=== PATIENT | male | born 1945 | race Hispanic/Latino ===

== ENCOUNTER 2017-06-03 15:00 | Inpatient (IN) | payer OTHER ==
[~2017-06-03] VITALS: Ht 170.2 cm; Wt 126.9 kg
[2017-06-03 16:20] LABS: APPEARANCE,URINE Clear (CLEAR); BILIRUBIN,URINE Small (NEGATIVE); COLOR,URINE Dark Yellow (YELLOW); GLUCOSE, URINE (UA) Negative (NEGATIVE); KETONES,URINE Negative (NEGATIVE); LEUKOCYTE ESTERASE ,URINE Trace (NEGATIVE); NITRATE,URINE Negative (NEGATIVE); OCCULT BLOOD,URINE Negative (NEGATIVE); PROTEIN,URINE Trace (NEGATIVE)
[2017-06-03 16:27] LABS: BASOPHILS % (AUTO) 0.6 % (0.0-5.0); EOSINOPHILS % (AUTO) 0.9 % (0.0-8.0); HEMATOCRIT 40.1 % (42-54); MEAN CORPUSCULAR HEMOGLOBIN 33.5 pg (27.0-33.0); MEAN CORPUSCULAR HGB CONC 34.5 g/dL (32.0-36.0); MONOCYTES % (AUTO) 11.8 % (3.0-13.0); NEUTROPHILS % (AUTO) 64.7 % (40.0-77.0); PLATELET COUNT (AUTO) 164 K/uL (130-400); RED BLOOD CELL COUNT(AUTO) 4.13 MIL/uL (4.50-6.20); RED CELL DISTRIBUTION WIDTH 16.5 % (11.0-15.5)
[2017-06-03 16:31] LABS: BACTERIA,URINE Rare /HPF (None Seen); RBC,URINE None Seen /HPF (0-1); WBC,URINE 0-1 /HPF (0-1)
[2017-06-03 16:35] LABS: INR 1.15 (0.85-1.15); PARTIAL THROMBOPLASTIN TIME 26.9 SEC (26.3-35.5)
[2017-06-03 16:39] VITALS: BP 177/78
[2017-06-03] MEDS ORDERED: LISI40TA4 PO (16:44)
[2017-06-03] MEDS ORDERED: METO-409 PO (16:44)
[2017-06-03] MEDS ORDERED: METF10004 PO (16:44)
[2017-06-03] MEDS ORDERED: GLIP5TAB11 PO (16:44)
[2017-06-03] MEDS ORDERED: ATOR40TA71 PO (16:44)
[2017-06-03] MEDS ORDERED: LEVO50TA4 PO (16:44)
[2017-06-03] MEDS ORDERED: FLUT1BLS IH (16:44)
[2017-06-03] MEDS ORDERED: ASPI-555 PO (16:44)
[2017-06-03] MEDS ORDERED: DOXA1TAB2 PO (16:44)
[2017-06-04] VITALS (24 sets, daily range): BP systolic 104–178; BP diastolic 62–81
[2017-06-04] MEDS ORDERED: CEFAZOLIN SODIUM 1 GM VIAL ONE ×2 (06:47→07:58)
[2017-06-04] MEDS ORDERED: SODIUM CHLORIDE 0.9% 1000ML 1,000 ML IV ONE (06:47)
[2017-06-04] MEDS ORDERED: TRANEXAMIC ACID 1000MG/10ML IV ONE (07:59)
[2017-06-04] MEDS ORDERED: PROPOFOL 10 MG/ML 20ML VIAL IV ONE (08:36)
[2017-06-04] MEDS ORDERED: DEXAMETHASONE SOD PHOSPHATE 10MG/ML 1ML VIAL ONE (08:36)
[2017-06-04] MEDS ORDERED: GLYCOPYRROLATE 0.2 MG/ML 5 ML VIAL ONE ×2 (08:36→11:20)
[2017-06-04] MEDS ORDERED: LIDOCAINE PF 2% 5ML ABBOJECT ONE (08:36)
[2017-06-04] MEDS ORDERED: MIDAZOLAM HCL 1 MG/ML 2ML VIAL ONE (08:36)
[2017-06-04] MEDS ORDERED: FENTANYL CITRATE PF 50 MCG/1 ML 2ML VIAL ONE (08:36)
[2017-06-04] MEDS ORDERED: BUPIVACAINE/EPI/PF 0.25% 30ML VIAL IJ ONE (08:52)
[2017-06-04] MEDS: ACETAMINOPHEN 325 MG TAB PO SCH ×3 (11:00→22:50)
[2017-06-04] MEDS ORDERED: LIDOCAINE HCL-MPF 1% 2ML VIAL IVP PRN (11:00)
[2017-06-04] MEDS ORDERED: FERROUS FUMARATE 324 MG TABLET PO PRN (11:00)
[2017-06-04] MEDS ORDERED: TEMAZEPAM 15 MG CAPSULE PO PRN (11:00)
[2017-06-04] MEDS ORDERED: OXYCODONE HCL 5 MG TAB PO PRN (11:00)
[2017-06-04] MEDS ORDERED: DIPHENHYDRAMINE HCL 25 MG CAPSULE PO PRN (11:00)
[2017-06-04] MEDS ORDERED: POTASSIUM CHLORIDE 20 MEQ ERTAB PO PRN (11:00)
[2017-06-04] MEDS ORDERED: TRAMADOL HCL 50 MG TABLET PO PRN (11:00)
[2017-06-04] MEDS ORDERED: CALCIUM CARBONATE 500 MG TABLET PO PRN (11:00)
[2017-06-04] MEDS ORDERED: PROMETHAZINE HCL 25 MG/ML 1ML AMPULE IM PRN (11:00)
[2017-06-04] MEDS ORDERED: POTASSIUM CHLORIDE 20MEQ/100ML 100 ML IV PRN (11:00)
[2017-06-04] MEDS ORDERED: DiphenhydrAMINE HCL 50 MG/ML VIAL IVP PRN (11:00)
[2017-06-04] MEDS ORDERED: POTASSIUM CHLORIDE 10% ELIXIR 20 MEQ/15 ML UDCUP PO PRN (11:00)
[2017-06-04] MEDS ORDERED: NEOSTIGMINE 5MG/5ML SYR IV ONE (11:20)
[2017-06-04] MEDS: INSULIN HUMULIN R 100 UNIT/ML 3ML SQ SCH ×3 (11:30→21:00)
[2017-06-04] MEDS ORDERED: MEPERIDINE-PF 25 MG/ML SYG ONE ×2 (11:49→12:06)
[2017-06-04] MEDS: PSYLLIUM SEED 1 EACH PACKET PO SCH (12:00)
[2017-06-04] MEDS: SODIUM CHLORIDE 0.9% 1000ML 1,000 ML IV SCH ×2 (14:52→22:50)
[2017-06-04] MEDS ORDERED: CEFAZOLIN 3GM /D5W 100ML 100 ML IV SCH (16:00)
[2017-06-04] MEDS: CEFAZOLIN SODIUM 1 GM VIAL IVP SCH (16:00)
[2017-06-04] MEDS: KETOROLAC TROMETHAMINE 15MG/ML IV PRN ×2 (16:17→16:32)
[2017-06-04] MEDS: CEFAZOLIN 3GM /D5W 100ML 100 ML IV SCH (16:32)
[2017-06-04] MEDS: ALBUTEROL SULFATE 0.083% 2.5 MG/3 ML INH IH SCH (18:48)
[2017-06-04] MEDS: BUDESONIDE 0.5 MG/2 ML INH IH SCH (18:57)
[2017-06-04] MEDS: ATORVASTATIN CALCIUM 20 MG TABLET PO SCH (20:56)
[2017-06-04] MEDS: DOXAZOSIN MESYLATE 2 MG TABLET PO SCH (20:56)
[2017-06-04] MEDS: CELECOXIB 200 MG CAP PO SCH (20:56)
[2017-06-04] MEDS: METOPROLOL TARTRATE 25 MG TAB PO SCH (20:57)
[2017-06-04] MEDS: ASPIRIN 325 MG TABLET PO SCH (20:57)
[2017-06-04] MEDS: GLIPIZIDE 5 MG TABLET PO SCH (20:57)
[2017-06-04] MEDS: METFORMIN HCL 500 MG TABLET PO SCH (20:57)
[2017-06-04] MEDS: PREGABALIN 75 MG CAPSULE PO SCH (20:58)
[2017-06-05] VITALS (7 sets, daily range): BP systolic 110–176; BP diastolic 45–75
[2017-06-05] MEDS: CEFAZOLIN SODIUM 1 GM VIAL IVP SCH
[2017-06-05] MEDS: ALBUTEROL SULFATE 0.083% 2.5 MG/3 ML INH IH SCH ×5 (00:23→23:08)
[2017-06-05] MEDS: CEFAZOLIN 3GM /D5W 100ML 100 ML IV SCH (01:43)
[2017-06-05] MEDS: ACETAMINOPHEN 325 MG TAB PO SCH ×4 (04:38→23:04)
[2017-06-05 05:36] LABS: HEMATOCRIT 32.6 % (42-54); MEAN CORPUSCULAR HEMOGLOBIN 33.4 pg (27.0-33.0); MEAN CORPUSCULAR HGB CONC 34.4 g/dL (32.0-36.0); MEAN CORPUSCULAR VOLUME 97.1 fL (79-99); PLATELET COUNT (AUTO) 118 K/uL (130-400); RED BLOOD CELL COUNT(AUTO) 3.35 MIL/uL (4.50-6.20); RED CELL DISTRIBUTION WIDTH 15.4 % (11.0-15.5); WHITE BLOOD COUNT (AUTO) 8.4 K/uL (4.8-10.8)
[2017-06-05 05:48] LABS: CREATININE 1.1 mg/dL (0.5-1.5); POTASSIUM 4.1 mmol/L (3.5-5.1)
[2017-06-05] MEDS: INSULIN HUMULIN R 100 UNIT/ML 3ML SQ SCH ×4 (06:45→20:25)
[2017-06-05] MEDS: BUDESONIDE 0.5 MG/2 ML INH IH SCH ×2 (06:52→18:38)
[2017-06-05] MEDS: SODIUM CHLORIDE 0.9% 1000ML 1,000 ML IV SCH (06:59)
[2017-06-05] MEDS: POLYETHYLENE GLYCOL 3350 17 GM POWD.PACK PO SCH (07:57)
[2017-06-05] MEDS: ASPIRIN 325 MG TABLET PO SCH ×2 (07:58→19:56)
[2017-06-05] MEDS: LEVOTHYROXINE 50 MCG TABLET PO SCH (07:58)
[2017-06-05] MEDS: PREGABALIN 75 MG CAPSULE PO SCH ×2 (07:58→19:57)
[2017-06-05] MEDS: CELECOXIB 200 MG CAP PO SCH ×2 (07:58→19:56)
[2017-06-05] MEDS: METOPROLOL TARTRATE 25 MG TAB PO SCH ×2 (07:59→19:58)
[2017-06-05] MEDS: LISINOPRIL 20 MG TABLET PO SCH (07:59)
[2017-06-05] MEDS: GLIPIZIDE 5 MG TABLET PO SCH ×2 (07:59→19:57)
[2017-06-05] MEDS: OXYCODONE HCL 5 MG TAB PO PRN ×2 (08:03→12:59)
[2017-06-05] MEDS: PSYLLIUM SEED 1 EACH PACKET PO SCH (11:40)
[2017-06-05] MEDS: DOXAZOSIN MESYLATE 2 MG TABLET PO SCH (19:57)
[2017-06-05] MEDS: ATORVASTATIN CALCIUM 20 MG TABLET PO SCH (19:57)
[2017-06-05] MEDS: METFORMIN HCL 500 MG TABLET PO SCH (19:57)
[2017-06-06 04:00] VITALS: BP 131/66
[2017-06-06] MEDS: ACETAMINOPHEN 325 MG TAB PO SCH ×3 (04:35→16:42)
[2017-06-06] MEDS: INSULIN HUMULIN R 100 UNIT/ML 3ML SQ SCH ×3 (05:59→16:30)
[2017-06-06 06:26] LABS: HEMATOCRIT 31.6 % (42-54); MEAN CORPUSCULAR HEMOGLOBIN 33.4 pg (27.0-33.0); MEAN CORPUSCULAR HGB CONC 34.6 g/dL (32.0-36.0); MEAN CORPUSCULAR VOLUME 96.6 fL (79-99); PLATELET COUNT (AUTO) 115 K/uL (130-400); RED BLOOD CELL COUNT(AUTO) 3.27 MIL/uL (4.50-6.20)
[2017-06-06] MEDS: BUDESONIDE 0.5 MG/2 ML INH IH SCH ×2 (06:28→18:00)
[2017-06-06] MEDS: ALBUTEROL SULFATE 0.083% 2.5 MG/3 ML INH IH SCH ×3 (06:28→18:00)
[2017-06-06 06:31] LABS: CREATININE 1.2 mg/dL (0.5-1.5); POTASSIUM 4.3 mmol/L (3.5-5.1)
[2017-06-06 07:48] VITALS: BP 112/47
[2017-06-06] MEDS: CELECOXIB 200 MG CAP PO SCH (10:02)
[2017-06-06] MEDS: ASPIRIN 325 MG TABLET PO SCH (10:02)
[2017-06-06] MEDS: METOPROLOL TARTRATE 25 MG TAB PO SCH (10:03)
[2017-06-06] MEDS: LISINOPRIL 20 MG TABLET PO SCH (10:03)
[2017-06-06] MEDS: LEVOTHYROXINE 50 MCG TABLET PO SCH (10:03)
[2017-06-06] MEDS: PREGABALIN 75 MG CAPSULE PO SCH (10:03)
[2017-06-06] MEDS: POLYETHYLENE GLYCOL 3350 17 GM POWD.PACK PO SCH (10:03)
[2017-06-06] MEDS: GLIPIZIDE 5 MG TABLET PO SCH (10:03)
[2017-06-06] MEDS ORDERED: ASPI-1012 PO (10:52)
[2017-06-06] MEDS ORDERED: HYDR-309 PO (10:52)
[2017-06-06 11:32] VITALS: BP 125/57
[2017-06-06] MEDS: PSYLLIUM SEED 1 EACH PACKET PO SCH (12:29)
[2017-06-06 16:00] VITALS: BP 136/55
[2017-06-07] MEDS ORDERED: BISACODYL 10 MG SUPP.RECT RC PRN (11:00)
== END 2017-06-06 19:00 | disposition home health service (06) | DRG 470 ==
LOC: EDSTATUS 15:00 → DAHIP 06-04 06:00 → 4AH 06-04 12:45
PROVIDERS: ADMIT Orthopaedic Surgery; ATTEND Orthopaedic Surgery
PROC: 0SRC0J9 Replacement of Right Knee Joint with Synthetic Substitute, Cemented, Open Approach (ICD-10-PCS; principal; 2017-06-04 08:38)
DX: M17.11 Unilateral primary osteoarthritis, right knee (principal); E11.9 Type 2 diabetes mellitus without complications; I11.9 Hypertensive heart disease without heart failure; Z68.41 Body mass index [BMI] 40.0-44.9, adult; E66.9 Obesity, unspecified; Z85.51 Personal history of malignant neoplasm of bladder; Z83.3 Family history of diabetes mellitus; Z82.49 Family history of ischemic heart disease and other diseases of the circulatory system
CPT/HCPCS: 36415; 80048; 81001; 82948; 85025; 85027; 85610; 85730; 88305; 88311; 94640; 94664; A4218; C1713; J0690; J1100; J1815; J1885; J2001; J2175; J2250; J2704; J2710; J3010; J3490; J7030

== ENCOUNTER 2018-06-17 09:53 | Inpatient (IN) | payer OTHER | END 2018-06-27 21:28 | LOC: 4BH 06-19 19:44 → DAHIP 09:53 → 2BH 21:34 | PROC: 0SPC0JZ Removal of Synthetic Substitute from Right Knee Joint, Open Approach (ICD-10-PCS; principal; 2018-06-17 14:34) | PROC: 0SRC0EZ Replacement of Right Knee Joint with Articulating Spacer, Open Approach (ICD-10-PCS; 2018-06-17 14:34) | PROC: 0SBC0ZZ Excision of Right Knee Joint, Open Approach (ICD-10-PCS; 2018-06-17 14:34) | PROC: 5A1935Z Respiratory Ventilation, Less than 24 Consecutive Hours (ICD-10-PCS; 2018-06-17 14:34) | PROC: 0BH17EZ Insertion of Endotracheal Airway into Trachea, Via Natural or Artificial Opening (ICD-10-PCS; 2018-06-17 14:34) | DX: T84.53XA Infection and inflammatory reaction due to internal right knee prosthesis, initial encounter (principal); J95.821 Acute postprocedural respiratory failure; N17.9 Acute kidney failure, unspecified; N39.0 Urinary tract infection, site not specified; Y83.1 Surgical operation with implant of artificial internal device as the cause of abnormal reaction of the patient, or of later complication, without mention of misadventure at the time of the procedure; F17.200 Nicotine dependence, unspecified, uncomplicated; I12.9 Hypertensive chronic kidney disease with stage 1 through stage 4 chronic kidney disease, or unspecified chronic kidney disease; G47.33 Obstructive sleep apnea (adult) (pediatric); N18.3 Chronic kidney disease, stage 3 (moderate); E87.5 Hyperkalemia; E66.01 Morbid (severe) obesity due to excess calories; Z68.37 Body mass index [BMI] 37.0-37.9, adult ==

== ENCOUNTER 2018-07-28 10:01 | Inpatient (IN) | payer OTHER ==
[~2018-07-28] VITALS: Ht 170.2 cm; Wt 117.0 kg
[~2018-07-28 10:01] MED LIST: APIX2.5T PO; ASPI-555 PO; ATOR40TA71 PO; DOXA1TAB2 PO; FERR324T PO; GLIP5TAB11 PO; HYDR-4457 PO; HYDR12.54 PO; LEVO50TA4 PO; LISI40TA4 PO; METF-446 PO; METO-409 PO
[2018-07-28] MEDS ORDERED: ACETAMINOPHEN 325 MG TAB PO PRN (12:00)
[2018-07-28] MEDS ORDERED: PROMETHAZINE HCL 25 MG/ML 1ML AMPULE IM PRN (12:00)
[2018-07-28] MEDS ORDERED: HYDROCODONE/ACETAMINOPHEN 5/325 MG TAB PO PRN ×2 (12:00)
[2018-07-28] MEDS ORDERED: CEFAZOLIN 3GM /D5W 100ML 100 ML IV SCH (12:00)
[2018-07-28] MEDS ORDERED: TRAMADOL HCL 50 MG TABLET PO PRN (12:00)
[2018-07-28 12:02] LABS: BASOPHILS % (AUTO) 0.6 % (0.0-5.0); EOSINOPHILS % (AUTO) 3.8 % (0.0-8.0); HEMATOCRIT 31.8 % (42-54); LYMPHOCYTES % (AUTO) 20.5 % (21.0-51.0); MEAN CORPUSCULAR HEMOGLOBIN 32.4 pg (27.0-33.0); MEAN CORPUSCULAR HGB CONC 33.3 g/dL (32.0-36.0); MEAN CORPUSCULAR VOLUME 97.2 fL (79-99); MONOCYTES % (AUTO) 12.4 % (3.0-13.0); NEUTROPHILS % (AUTO) 62.7 % (40.0-77.0); PLATELET COUNT (AUTO) 119 K/uL (130-400); RED BLOOD CELL COUNT(AUTO) 3.28 MIL/uL (4.50-6.20); RED CELL DISTRIBUTION WIDTH 14.6 % (11.0-15.5); WHITE BLOOD COUNT (AUTO) 5.9 K/uL (4.8-10.8)
[2018-07-28 12:05] LABS: APPEARANCE,URINE Clear (CLEAR); BILIRUBIN,URINE Negative (NEGATIVE); COLOR,URINE Yellow (YELLOW); GLUCOSE, URINE (UA) Negative (NEGATIVE); KETONES,URINE Negative (NEGATIVE); LEUKOCYTE ESTERASE ,URINE Trace (NEGATIVE); NITRATE,URINE Negative (NEGATIVE); OCCULT BLOOD,URINE Negative (NEGATIVE); PH,URINE 6.5 (5.0-8.0); PROTEIN,URINE Negative (NEGATIVE); UROBILINOGEN,URINE 0.2 mg/dL (0.2-1.0)
[2018-07-28 12:21] LABS: ALBUMIN 2.8 g/dL (3.5-5.0); BILIRUBIN,TOTAL 1.4 mg/dL (0.2-1.0); INR 1.21 (0.85-1.15); PARTIAL THROMBOPLASTIN TIME 30.3 SEC (26.3-35.5); PROTHROMBIN TIME 12.7 SEC (9.6-11.6); TOTAL PROTEIN, SERUM 6.6 g/dL (6.0-8.3)
[2018-07-28 12:29] LABS: BACTERIA,URINE Rare /HPF (None Seen); RBC,URINE None Seen /HPF (0-1); SQUAMOUS EPITHELIAL CELL,UR 0-2 /HPF (0-2)
[2018-07-28 13:09] LABS: ERYTHROCYTE SEDIMENTATION RATE 29 MM/HR (0-20)
[2018-07-28 14:04] LABS: PLATELET MORPHOLOGY COMMENT DECREASED
[2018-07-28] MEDS ORDERED: SODIUM CHLORIDE 0.9% 1000ML 1,000 ML IV ONE (14:37)
[2018-07-28 16:00] VITALS: BP 176/76
--- NOTE | 2018-07-28 17:30 | NUR ---
Assumed care of pt from Michael Paul RN. Pt noted to have PICC to ILDEFONSO with dressing dated 07/09/18. Notified Ortho Coordinator Ally Zavala RN and Director Ally Guillen RN. Sterile dressing change performed per facility protocol. Photos taken and placed in chart. Single port PICC; changed luer lock as well. Port flushes well and has good blood return. Pt voiced no discomfort.
[2018-07-28] MEDS ORDERED: VANCOMYCIN PROTOCOL PER PHARMACY IV SCH (18:00)
[2018-07-28] MEDS ORDERED: VANCOMYCIN 2 GM in SODIUM CHLORIDE 0.9% 500ML 500 ML IV ONE (18:30)
[2018-07-28 20:00] VITALS: BP 162/73
[2018-07-28] MEDS: SODIUM CHLORIDE 0.9% 1000ML 1,000 ML IV SCH (20:33)
[2018-07-28] MEDS ORDERED: ATORVASTATIN CALCIUM 40 MG TABLET ONE (23:16)
[2018-07-28 23:55] VITALS: BP 167/66
[2018-07-28] MEDS ORDERED: METOPROLOL TARTRATE 25 MG TAB ONE (23:55)
[2018-07-29] VITALS (23 sets, daily range): BP systolic 106–153; BP diastolic 44–67
[2018-07-29] MEDS: METOPROLOL TARTRATE 25 MG TAB PO SCH ×3 (00:01→20:56)
[2018-07-29] MEDS: LEVOTHYROXINE 50 MCG TABLET PO SCH (06:30)
[2018-07-29] MEDS: VANCOMYCIN 1GM+NS 250ML 250 ML IV SCH ×2 (07:20→18:31)
[2018-07-29] MEDS ORDERED: GLUCAGON 1MG KIT 1 MG ML IM PRN (07:30)
[2018-07-29] MEDS ORDERED: DEXTROSE 50%-WATER 50 ML DISP.SYRIN IV PRN (07:30)
[2018-07-29] MEDS: GLIPIZIDE 5 MG TABLET PO SCH ×2 (08:00→17:00)
[2018-07-29 08:19] LABS: BASOPHILS % (AUTO) 0.9 % (0.0-5.0); EOSINOPHILS % (AUTO) 5.9 % (0.0-8.0); LYMPHOCYTES % (AUTO) 21.9 % (21.0-51.0); MEAN CORPUSCULAR HEMOGLOBIN 33.5 pg (27.0-33.0); MEAN CORPUSCULAR HGB CONC 34.3 g/dL (32.0-36.0); MEAN CORPUSCULAR VOLUME 97.8 fL (79-99); MONOCYTES % (AUTO) 11.1 % (3.0-13.0); NEUTROPHILS % (AUTO) 60.2 % (40.0-77.0); NUCLEATED RED BLOOD CELLS 0.2 % (0.0-0.19); PLATELET COUNT (AUTO) 113 K/uL (130-400); RED BLOOD CELL COUNT(AUTO) 3.07 MIL/uL (4.50-6.20); RED CELL DISTRIBUTION WIDTH 14.3 % (11.0-15.5); WHITE BLOOD COUNT (AUTO) 4.7 K/uL (4.8-10.8)
[2018-07-29 08:52] LABS: POTASSIUM 4.1 mmol/L (3.5-5.1)
[2018-07-29] MEDS: LISINOPRIL 20 MG TABLET PO SCH (09:00)
[2018-07-29] MEDS: DOXAZOSIN MESYLATE 2 MG TABLET PO SCH (09:00)
[2018-07-29] MEDS ORDERED: FERROUS GLUCONATE 325 MG TABLET PO SCH (09:00)
[2018-07-29] MEDS: HYDROCHLOROTHIAZIDE 25 MG TABLET PO SCH (09:00)
[2018-07-29] MEDS: SODIUM CHLORIDE 0.9% 1000ML 1,000 ML IV SCH ×2 (10:29→18:00)
[2018-07-29] MEDS ORDERED: KETOROLAC TROMETHAMINE 15MG/ML ONE (11:00)
[2018-07-29] MEDS ORDERED: CELECOXIB 200 MG CAP ONE (11:00)
[2018-07-29] MEDS ORDERED: ACETAMINOPHEN EXTRA STRENGTH 500 MG TABLET ONE (11:00)
[2018-07-29] MEDS ORDERED: OXYCODONE HCL 10 MG TAB.SR.12H PO ONE (11:01)
[2018-07-29] MEDS: CEFAZOLIN SODIUM 1 GM VIAL ONE ×2 (11:29→12:19)
[2018-07-29] MEDS ORDERED: VANCOMYCIN HCL 1 GM VIAL ONE ×3 (11:52→14:53)
[2018-07-29] MEDS ORDERED: CEFAZOLIN SODIUM 1 GM VIAL ONE ×5 (11:52→16:11)
[2018-07-29] MEDS ORDERED: TRANEXAMIC ACID 1000MG/10ML IV ONE ×2 (11:52→17:02)
[2018-07-29] MEDS ORDERED: MIDAZOLAM HCL 1 MG/ML 2ML VIAL ONE (12:05)
[2018-07-29] MEDS ORDERED: LIDOCAINE PF 2% 5ML ABBOJECT ONE (12:06)
[2018-07-29] MEDS ORDERED: PROPOFOL 10 MG/ML 20ML VIAL IV ONE (12:06)
[2018-07-29] MEDS ORDERED: ROCURONIUM 10MG/1ML SYR 10 MG/ML ML ONE ×2 (12:07→13:57)
[2018-07-29] MEDS ORDERED: EPHEDRINE SULFATE 50 MG/ML AMPULE ONE (12:36)
[2018-07-29] MEDS ORDERED: GLYCOPYRROLATE 1 MG/5 ML SYRINGE ONE ×2 (12:58→15:58)
[2018-07-29] MEDS ORDERED: CEFAZOLIN SODIUM 1 GM VIAL IRRIG ONE (13:00)
[2018-07-29 13:50] LABS: APPEARANCE BODY FLUID TURBID (CLEAR); COLOR,BODY FLUID RED (LT YELLOW); SPECIMENTYPE,BODY FLUID SYNOVIAL
[2018-07-29 13:51] LABS: BODY FLUID RBC 690000 /cu. mm.; BODY FLUID WBC 563 /cu. mm.; TOTAL VOLUME,BODY FLUID 10 mL
[2018-07-29 14:36] LABS: BF EOSINOPHIL 14 %; BF LYMPHOCYTE 14 %; BF MESOTHELIAL 5 %; BF MONOCYTE 4 %
[2018-07-29] MEDS ORDERED: NEOSTIGMINE 5MG/5ML SYR IV ONE (15:58)
[2018-07-29] MEDS ORDERED: DiphenhydrAMINE HCL 50 MG/ML VIAL IVP PRN (16:15)
[2018-07-29] MEDS ORDERED: OXYCODONE HCL 5 MG TAB PO PRN ×2 (16:15)
[2018-07-29] MEDS ORDERED: POTASSIUM CHLORIDE 10% ELIXIR 20 MEQ/15 ML UDCUP PO PRN (16:15)
[2018-07-29] MEDS ORDERED: TEMAZEPAM 15 MG CAPSULE PO PRN (16:15)
[2018-07-29] MEDS ORDERED: CALCIUM CARBONATE 500 MG TABLET PO PRN (16:15)
[2018-07-29] MEDS ORDERED: FERROUS FUMARATE 324 MG TABLET PO PRN (16:15)
[2018-07-29] MEDS ORDERED: LIDOCAINE HCL-MPF 1% 2ML VIAL IVP PRN (16:15)
[2018-07-29] MEDS ORDERED: POTASSIUM CHLORIDE 20MEQ/100ML 100 ML IV PRN (16:15)
[2018-07-29] MEDS ORDERED: ONDANSETRON HCL 4 MG/2 ML VIAL IVP PRN (16:15)
[2018-07-29] MEDS ORDERED: POTASSIUM CHLORIDE 20 MEQ ERTAB PO PRN (16:15)
[2018-07-29] MEDS ORDERED: ONDANSETRON HCL 4 MG/2 ML VIAL ONE (16:23)
[2018-07-29] MEDS ORDERED: FENTANYL CITRATE PF 50 MCG/1 ML 2ML VIAL ONE (16:25)
[2018-07-29] MEDS: INSULIN HUMULIN R 100 UNIT/ML 3ML SQ SCH ×2 (16:30→20:56)
[2018-07-29] MEDS ORDERED: MEPERIDINE-PF 25 MG/ML SYG ONE (17:02)
[2018-07-29] MEDS: ACETAMINOPHEN EXTRA STRENGTH 500 MG TABLET PO SCH (18:00)
[2018-07-29] MEDS: CELECOXIB 200 MG CAP PO SCH (20:56)
[2018-07-29] MEDS: FAMOTIDINE 20MG TAB 20 MG TAB PO SCH (20:56)
[2018-07-29] MEDS: ATORVASTATIN CALCIUM 40 MG TABLET PO SCH (20:56)
[2018-07-29] MEDS: PREGABALIN 25 MG CAP PO SCH (20:56)
[2018-07-29] MEDS: METFORMIN HCL 500 MG TABLET PO SCH (20:56)
[2018-07-29] MEDS: APIXABAN 2.5 MG TABLET PO SCH (20:56)
[2018-07-29] MEDS: CEFAZOLIN SODIUM 1 GM VIAL IVP SCH (20:57)
[2018-07-29] MEDS ORDERED: NON-FORMULARY MEDICATION 1 EACH (Metoprolol Succinate 50 MG) PO SCH (21:00)
[2018-07-30] MEDS: ACETAMINOPHEN EXTRA STRENGTH 500 MG TABLET PO SCH ×3 (00:20→16:40)
[2018-07-30] MEDS: SODIUM CHLORIDE 0.9% 1000ML 1,000 ML IV SCH ×4 (01:27→13:57)
[2018-07-30 04:00] VITALS: BP 119/59
[2018-07-30] MEDS: CEFAZOLIN SODIUM 1 GM VIAL IVP SCH (04:48)
[2018-07-30 05:41] LABS: HEMATOCRIT 29.6 % (42-54); MEAN CORPUSCULAR HEMOGLOBIN 32.2 pg (27.0-33.0); MEAN CORPUSCULAR HGB CONC 32.4 g/dL (32.0-36.0); MEAN CORPUSCULAR VOLUME 99.5 fL (79-99); NUCLEATED RED BLOOD CELLS 0.1 % (0.0-0.19); PLATELET COUNT (AUTO) 160 K/uL (130-400); RED BLOOD CELL COUNT(AUTO) 2.97 MIL/uL (4.50-6.20); RED CELL DISTRIBUTION WIDTH 15.1 % (11.0-15.5); WHITE BLOOD COUNT (AUTO) 12.3 K/uL (4.8-10.8)
[2018-07-30 06:04] LABS: CREATININE 1.6 mg/dL (0.5-1.5); POTASSIUM 4.8 mmol/L (3.5-5.1)
--- NOTE | 2018-07-30 06:18 | NUR ---
INSERTED 16F MARTIN CATHETER D/T URINARY RETENTION. PT UNABLE TO VOID MORE THAN 20CC. DRAINED 600ML DARK ANA PAULA CLEAR URINE FROM THE BLADDER.
[2018-07-30] MEDS: INSULIN HUMULIN R 100 UNIT/ML 3ML SQ SCH ×4 (06:34→20:01)
[2018-07-30] MEDS: LEVOTHYROXINE 50 MCG TABLET PO SCH (06:45)
[2018-07-30] MEDS: VANCOMYCIN 1GM+NS 250ML 250 ML IV SCH ×2 (07:29→20:01)
[2018-07-30 08:26] VITALS: BP 121/56
[2018-07-30] MEDS: HYDROCHLOROTHIAZIDE 25 MG TABLET PO SCH (09:00)
[2018-07-30] MEDS: METOPROLOL TARTRATE 25 MG TAB PO SCH ×2 (09:00→20:00)
[2018-07-30] MEDS: DOXAZOSIN MESYLATE 2 MG TABLET PO SCH (09:00)
[2018-07-30] MEDS: PREGABALIN 25 MG CAP PO SCH ×2 (09:51→20:00)
[2018-07-30] MEDS: CELECOXIB 200 MG CAP PO SCH ×2 (09:51→20:00)
[2018-07-30] MEDS: FAMOTIDINE 20MG TAB 20 MG TAB PO SCH ×2 (09:51→20:00)
[2018-07-30] MEDS: TRAMADOL HCL 50 MG TABLET PO PRN ×2 (09:51→13:04)
[2018-07-30] MEDS: APIXABAN 2.5 MG TABLET PO SCH ×2 (09:52→20:00)
[2018-07-30] MEDS: LISINOPRIL 20 MG TABLET PO SCH (09:52)
[2018-07-30] MEDS: TAMSULOSIN HCL 0.4 MG CAP.ER.24H PO SCH (09:53)
[2018-07-30] MEDS: GLIPIZIDE 5 MG TABLET PO SCH ×2 (09:53→16:39)
[2018-07-30] MEDS: POLYETHYLENE GLYCOL 3350 17 GM POWD.PACK PO SCH (09:54)
[2018-07-30 11:36] VITALS: BP 124/54
--- NOTE | 2018-07-30 12:35 | NUR ---
DC PLAN VISITED WITH PATIENT. PATIENT LIVES WITH SPOUSE. INDEPENDENT ABLE TO PERFORM ADL'S. PATIENT HAS NO SERVICES. DME AVAILABLE FROM [facility]. Pamela SIDDIQUI, 3 IN 1. ANNABELLE SIGNED FOR [facility]. INFO SENT PENDING PT. Addendum: 07/30/18 at 1237 by IVANA CARRERO RN CM Amended: Links added.
[2018-07-30 16:26] VITALS: BP 117/47
[2018-07-30 19:35] VITALS: BP 125/49
[2018-07-30] MEDS: METFORMIN HCL 500 MG TABLET PO SCH (20:00)
[2018-07-30] MEDS: ATORVASTATIN CALCIUM 40 MG TABLET PO SCH (20:00)
[2018-07-30 23:40] VITALS: BP 106/46
[2018-07-31] MEDS: ACETAMINOPHEN EXTRA STRENGTH 500 MG TABLET PO SCH ×4 (01:25→23:56)
[2018-07-31 03:22] VITALS: BP 112/53
[2018-07-31 04:09] LABS: HEMATOCRIT 23.8 % (42-54); MEAN CORPUSCULAR HEMOGLOBIN 33.8 pg (27.0-33.0); MEAN CORPUSCULAR HGB CONC 34.3 g/dL (32.0-36.0); MEAN CORPUSCULAR VOLUME 98.7 fL (79-99); NUCLEATED RED BLOOD CELLS 0.1 % (0.0-0.19); PLATELET COUNT (AUTO) 100 K/uL (130-400); RED BLOOD CELL COUNT(AUTO) 2.41 MIL/uL (4.50-6.20); RED CELL DISTRIBUTION WIDTH 14.7 % (11.0-15.5); WHITE BLOOD COUNT (AUTO) 6.7 K/uL (4.8-10.8)
[2018-07-31 04:19] LABS: POTASSIUM 4.5 mmol/L (3.5-5.1)
[2018-07-31] MEDS: VANCOMYCIN 1GM+NS 250ML 250 ML IV SCH ×2 (06:58→17:40)
[2018-07-31] MEDS: LEVOTHYROXINE 50 MCG TABLET PO SCH (06:58)
[2018-07-31] MEDS: INSULIN HUMULIN R 100 UNIT/ML 3ML SQ SCH ×4 (06:59→20:21)
[2018-07-31] MEDS: GLIPIZIDE 5 MG TABLET PO SCH ×2 (08:00→16:44)
[2018-07-31 08:01] VITALS: BP 134/50
--- NOTE | 2018-07-31 09:00 | NUR ---
PICC line to right upper arm removed per Dr. Hanna's order. No resistance felt. 15 cm in length. Tip intact, appears cut, not jagged or torn. Pt stated was purposely short. Pressure held with sterile gloved and sterile 4x4 until hemostasis achieved, then dressed with sterile 4x4 and opsite. Pt tolerated well. Inserted new 22g PIV to LFA placed on first attempt, good blood return, flushes well. Aseptic technique utilized. Pt tolerated well.
[2018-07-31] MEDS: APIXABAN 2.5 MG TABLET PO SCH ×2 (09:22→20:21)
[2018-07-31] MEDS: DOXAZOSIN MESYLATE 2 MG TABLET PO SCH (09:22)
[2018-07-31] MEDS: METOPROLOL TARTRATE 25 MG TAB PO SCH ×2 (09:23→20:21)
[2018-07-31] MEDS: TAMSULOSIN HCL 0.4 MG CAP.ER.24H PO SCH (09:23)
[2018-07-31] MEDS: FAMOTIDINE 20MG TAB 20 MG TAB PO SCH ×2 (09:23→20:21)
[2018-07-31] MEDS: POLYETHYLENE GLYCOL 3350 17 GM POWD.PACK PO SCH (09:23)
[2018-07-31] MEDS: PREGABALIN 25 MG CAP PO SCH ×2 (09:23→20:21)
[2018-07-31 11:49] VITALS: BP 105/40
[2018-07-31] MEDS: SODIUM CHLORIDE 0.9% 1000ML 1,000 ML IV SCH (11:59)
--- NOTE | 2018-07-31 15:00 | NUR ---
cm note received call from Melody at [facility] and states pt is approved for [facility]. provided number to [email or web address] primary nurse for report. pts states he does have all equipment needed. 3 in 1 and SC, and walker, and w/c in place. states no other dc needs. pt updated on Home health. verbalizes understanding.
--- NOTE | 2018-07-31 15:15 | NUR ---
Notified Dr. Tam's office of consult.
[2018-07-31 16:06] VITALS: BP 115/50
--- NOTE | 2018-07-31 18:00 | NUR ---
Dressing change to right knee incision done per md orders. Skin edges well approximated with surgical glue. Painted with betadine and dressed with sterile 4x4's. Pt had Hemovac in place to upper thigh; is currently secured with silk tape. Secured knee dressing with sweta wrap and replaced immobilizer. Total drained from Hemovac was 155 cc sanguinous fluid. Pt stated no discomfort during procedure.
--- NOTE | 2018-07-31 18:30 | NUR ---
Dr. Tam here for initial consult with pt. Rec'd orders to leave Mccray in place upon discharge and follow up with him in 1 week.
[2018-07-31 19:10] VITALS: BP 99/51
[2018-07-31] MEDS: METFORMIN HCL 500 MG TABLET PO SCH (20:21)
[2018-07-31] MEDS: ATORVASTATIN CALCIUM 40 MG TABLET PO SCH (20:21)
[2018-08-01] VITALS: BP 118/45
[2018-08-01 03:46] VITALS: BP 122/58
[2018-08-01 04:31] LABS: HEMATOCRIT 22.9 % (42-54); MEAN CORPUSCULAR HEMOGLOBIN 32.9 pg (27.0-33.0); MEAN CORPUSCULAR HGB CONC 33.6 g/dL (32.0-36.0); MEAN CORPUSCULAR VOLUME 98.1 fL (79-99); PLATELET COUNT (AUTO) 109 K/uL (130-400); RED BLOOD CELL COUNT(AUTO) 2.33 MIL/uL (4.50-6.20); RED CELL DISTRIBUTION WIDTH 14.8 % (11.0-15.5); WHITE BLOOD COUNT (AUTO) 4.9 K/uL (4.8-10.8)
[2018-08-01 04:36] LABS: % IRON SATURATION 15.8 % (30-44)
[2018-08-01 04:52] LABS: CREATININE 1.8 mg/dL (0.5-1.5); POTASSIUM 4.2 mmol/L (3.5-5.1)
[2018-08-01 05:10] LABS: BAND NEUTROPHILS % (MANUAL) 3 % (0-2); EOSINOPHILS % (MANUAL) 8 % (1-6); LYMPHOCYTES % (MANUAL) 14 % (22-44); MONOCYTES % (MANUAL) 9 % (2-9); REACTIVE LYMPHOCYTES 2 % (0-0); SEGMENTED NEUTROPHILS % 64 % (40-70)
[2018-08-01 05:12] LABS: MAN.DIFF COMMENT-IMPRESSION MANUAL DIFFERENTIAL
[2018-08-01] MEDS: VANCOMYCIN 1GM+NS 250ML 250 ML IV SCH (05:44)
[2018-08-01] MEDS: INSULIN HUMULIN R 100 UNIT/ML 3ML SQ SCH ×2 (05:44→11:17)
[2018-08-01] MEDS: LEVOTHYROXINE 50 MCG TABLET PO SCH (06:24)
[2018-08-01 07:30] VITALS: BP 120/59
[2018-08-01] MEDS: POLYETHYLENE GLYCOL 3350 17 GM POWD.PACK PO SCH (08:21)
[2018-08-01] MEDS: METOPROLOL TARTRATE 25 MG TAB PO SCH (08:21)
[2018-08-01] MEDS: APIXABAN 2.5 MG TABLET PO SCH (08:21)
[2018-08-01] MEDS: PREGABALIN 25 MG CAP PO SCH (08:22)
[2018-08-01] MEDS: DOXAZOSIN MESYLATE 2 MG TABLET PO SCH (08:22)
[2018-08-01] MEDS: FAMOTIDINE 20MG TAB 20 MG TAB PO SCH (08:23)
[2018-08-01] MEDS: GLIPIZIDE 5 MG TABLET PO SCH (08:23)
[2018-08-01] MEDS: ACETAMINOPHEN EXTRA STRENGTH 500 MG TABLET PO SCH (08:25)
[2018-08-01] MEDS: TAMSULOSIN HCL 0.4 MG CAP.ER.24H PO SCH (08:25)
[2018-08-01] MEDS ORDERED: HYDR-4457 PO (10:31)
[2018-08-01] MEDS ORDERED: FERR324T PO (10:33)
[2018-08-01 11:18] VITALS: BP 104/46
[2018-08-01] MEDS ORDERED: APIX2.5T PO ×2 (11:18→11:28)
[2018-08-01] MEDS ORDERED: SODIUM CHLORIDE 0.9% 250 ML IV ONE (11:46)
[2018-08-01] MEDS ORDERED: COMPOUND IV MISC 1 EACH IVSOLN MISC PRN (12:30)
[2018-08-01] MEDS ORDERED: BISACODYL 10 MG SUPP.RECT RC PRN (16:15)
--- NOTE | 2018-08-01 17:00 | NUR ---
INSTRUCTIONS DISCHARGE INSTRUCTIONS GIVEN TO PATIENT AND FAMILY USING TEACH BACK. IV REMOVED WITH TIP INTACT. DIRECT PRESSURE APPLIED UNTIL BLEEDING CONTROLLED THEN SITE COVERED WITH GAUZE AND SECURED WITH A BAND-AID. F/U APPOINTMENTS WILL BE MADE BY PATIENT ON FRIDAY DURING REGULAR BUSINESS HOURS. NO QUESTIONS OR CONCERNS VOICED.
[2018-08-02] MEDS ORDERED: IRON SUCROSE COMPLEX 100 MG in SODIUM CHLORIDE 0.9% 50 ML IV SCH (09:00)
== END 2018-08-01 17:00 | disposition home health service (06) | DRG 467 ==
LOC: EDH 10:01 → EDHIP 10:02 → 4AH 14:46
PROVIDERS: ADMIT Orthopaedic Surgery; ATTEND Orthopaedic Surgery
PROC: 30233N1 Transfusion of Nonautologous Red Blood Cells into Peripheral Vein, Percutaneous Approach (ICD-10-PCS; principal; 2018-07-29 12:04)
PROC: 0SPC0JZ Removal of Synthetic Substitute from Right Knee Joint, Open Approach (ICD-10-PCS; 2018-07-29 12:04)
PROC: 0SPC08Z Removal of Spacer from Right Knee Joint, Open Approach (ICD-10-PCS; 2018-07-29 12:04)
PROC: 0SRC0J9 Replacement of Right Knee Joint with Synthetic Substitute, Cemented, Open Approach (ICD-10-PCS; 2018-07-29 12:04)
DX: T84.53XA Infection and inflammatory reaction due to internal right knee prosthesis, initial encounter (principal); Z68.41 Body mass index [BMI] 40.0-44.9, adult; N17.9 Acute kidney failure, unspecified; D62 Acute posthemorrhagic anemia; E66.01 Morbid (severe) obesity due to excess calories; G47.33 Obstructive sleep apnea (adult) (pediatric); M19.90 Unspecified osteoarthritis, unspecified site; D64.9 Anemia, unspecified; E03.9 Hypothyroidism, unspecified; E11.22 Type 2 diabetes mellitus with diabetic chronic kidney disease; N18.9 Chronic kidney disease, unspecified; I12.9 Hypertensive chronic kidney disease with stage 1 through stage 4 chronic kidney disease, or unspecified chronic kidney disease; N99.89 Other postprocedural complications and disorders of genitourinary system; I25.10 Atherosclerotic heart disease of native coronary artery without angina pectoris; Y83.1 Surgical operation with implant of artificial internal device as the cause of abnormal reaction of the patient, or of later complication, without mention of misadventure at the time of the procedure; Z96.653 Presence of artificial knee joint, bilateral; Z79.2 Long term (current) use of antibiotics; Z95.1 Presence of aortocoronary bypass graft; Z95.0 Presence of cardiac pacemaker; Z87.891 Personal history of nicotine dependence; Z86.718 Personal history of other venous thrombosis and embolism; Z85.51 Personal history of malignant neoplasm of bladder; Y92.89 Other specified places as the place of occurrence of the external cause; Z83.3 Family history of diabetes mellitus; Z82.49 Family history of ischemic heart disease and other diseases of the circulatory system; Z82.3 Family history of stroke
CPT/HCPCS: 36415; 36430; 71045; 73562; 76770; 80048; 80053; 80202; 81001; 82948; 83540; 83550; 85025; 85027; 85610; 85651; 85730; 86140; 86850; 86900; 86901; 86922; 87070; 87076; 87205; 88304; 88311; 89051; 93005; 97039; C1776; G0378; J0690; J1756; J1885; J2001; J2175; J2250; J2405; J2704; J2710; J3010; J3370; J3490; J7030; J7040; P9016

== ENCOUNTER 2021-03-15 16:01 | Inpatient (IN) | payer OTHER ==
[~2021-03-15] VITALS: Ht 170.2 cm; Wt 118.8 kg
[~2021-03-15 16:01] MED LIST changes: -ASPI-555 PO; +ASPI-556 PO; -LISI40TA4 PO; +LISI40TA9 PO
[2021-03-15 17:12] LABS: BASOPHILS % (AUTO) 0.5 % (0.0-5.0); EOSINOPHILS % (AUTO) 3.8 % (0.0-8.0); HEMATOCRIT 32.1 % (42-54); LYMPHOCYTES % (AUTO) 24.1 % (21.0-51.0); MEAN CORPUSCULAR HEMOGLOBIN 34.9 pg (27.0-33.0); MEAN CORPUSCULAR VOLUME 102.9 fL (79-99); MONOCYTES % (AUTO) 12.9 % (3.0-13.0); NEUTROPHILS % (AUTO) 58.4 % (40.0-77.0); PLATELET COUNT (AUTO) 138 K/uL (130-400); RED BLOOD CELL COUNT(AUTO) 3.12 MIL/uL (4.50-6.20); RED CELL DISTRIBUTION WIDTH 15.6 % (11.0-15.5); WHITE BLOOD COUNT (AUTO) 5.7 K/uL (4.8-10.8)
[2021-03-15 17:25] LABS: CREATININE 1.6 mg/dL (0.5-1.5); POTASSIUM 3.5 mmol/L (3.5-5.1)
[2021-03-15 17:30] LABS: BILIRUBIN,TOTAL 3.4 mg/dL (0.2-1.0); TOTAL PROTEIN, SERUM 6.9 g/dL (6.0-8.3)
[2021-03-15] MEDS ORDERED: CEFAZOLIN SODIUM 1 GM VIAL IVP SCH (17:30)
[2021-03-15] MEDS ORDERED: VANCOMYCIN 1G VIAL IVPB ONE (17:30)
[2021-03-15] MEDS ORDERED: 0.9%NACL 1000ML 2,000 ML IV ONE (17:30)
[2021-03-15] MEDS ORDERED: VANCOMYCIN 1.75GM/250ML NS IV ONE ×2 (17:30)
[2021-03-15] MEDS ORDERED: MAG/ALUM/SIMETH 30 ML UDCUP PO PRN (19:00)
[2021-03-15] MEDS ORDERED: ACETAMINOPHEN WITH CODEINE 1 TAB TAB PO PRN ×2 (19:00)
[2021-03-15] MEDS ORDERED: LACTULOSE 20 GM/30 ML UDCUP PO PRN (19:00)
[2021-03-15] MEDS ORDERED: NITROGLYCERIN 0.4 MG SL TAB SL PRN (19:00)
[2021-03-15] MEDS ORDERED: HYDRALAZINE 20MG/ML VIAL IV PRN (19:00)
[2021-03-15] MEDS ORDERED: DIPHENHYDRAMINE HCL 25 MG CAPSULE PO PRN (19:00)
[2021-03-15 19:36] LABS: INR 1.57 (0.85-1.15); PROTHROMBIN TIME 16.4 SEC (9.6-11.6)
[2021-03-15] MEDS ORDERED: TRAMADOL HCL 50 MG TABLET PO PRN ×2 (20:00)
[2021-03-15] MEDS: LACTATED RINGERS 1000ML 1,000 ML IV SCH (20:36)
[2021-03-15] MEDS ORDERED: CEFAZOLIN SODIUM 1 GM VIAL ONE (20:37)
[2021-03-15] MEDS ORDERED: CEFEPIME HCL 2 GM VIAL IVP SCH (21:00)
[2021-03-15] MEDS ORDERED: VANCOMYCIN PROTOCOL PER PHARMACY IV SCH (21:00)
[2021-03-15] MEDS ORDERED: SODIUM CHLORIDE IV ONE ×2 (21:30)
[2021-03-15] MEDS ORDERED: VANCOMYCIN IV ONE ×2 (21:30)
[2021-03-15 21:32] LABS: CRP QUANTITATIVE 26.9 mg/L (0.00-9.0)
[2021-03-15 21:50] VITALS: BP 177/75
[2021-03-15] MEDS ORDERED: COMPOUND IV REFRIGERATED 1 EACH IVSOLN MISC PRN (22:00)
[2021-03-15] MEDS: RIFAXIMIN 550 MG TABLET PO SCH (22:03)
[2021-03-15] MEDS: LACTULOSE 20 GM/30 ML UDCUP PO SCH (22:03)
[2021-03-15] MEDS: FAMOTIDINE 20MG VIAL IV SCH (22:03)
[2021-03-15] MEDS ORDERED: METF-444 PO (22:33)
[2021-03-15] MEDS ORDERED: BUME1TAB6 PO (22:33)
[2021-03-15] MEDS ORDERED: TAMS-1 PO (22:33)
[2021-03-15] MEDS ORDERED: ATOR40TA69 PO (22:33)
[2021-03-15] MEDS ORDERED: OMEP40CA21 PO (22:33)
[2021-03-15] MEDS ORDERED: RIFA550T PO (22:33)
[2021-03-15] MEDS ORDERED: AEC81 PO (22:33)
[2021-03-15] MEDS ORDERED: LEVO50CA4 PO (22:33)
[2021-03-15] MEDS ORDERED: LACT10SO9 PO (22:33)
[2021-03-15] MEDS ORDERED: POTA-79 PO (22:33)
[2021-03-15] MEDS ORDERED: MAGN400T53 PO (22:33)
[2021-03-15 23:19] VITALS: BP 163/76
[2021-03-16] VITALS (25 sets, daily range): BP systolic 123–169; BP diastolic 56–73
[2021-03-16 05:47] LABS: BASOPHILS % (AUTO) 0.8 % (0.0-5.0); EOSINOPHILS % (AUTO) 4.7 % (0.0-8.0); HEMATOCRIT 28.6 % (42-54); LYMPHOCYTES % (AUTO) 29.3 % (21.0-51.0); MEAN CORPUSCULAR HGB CONC 33.6 g/dL (32.0-36.0); MEAN CORPUSCULAR VOLUME 104.4 fL (79-99); MONOCYTES % (AUTO) 14.2 % (3.0-13.0); NEUTROPHILS % (AUTO) 50.8 % (40.0-77.0); PLATELET COUNT (AUTO) 108 K/uL (130-400); RED BLOOD CELL COUNT(AUTO) 2.74 MIL/uL (4.50-6.20); RED CELL DISTRIBUTION WIDTH 15.8 % (11.0-15.5); WHITE BLOOD COUNT (AUTO) 4.7 K/uL (4.8-10.8)
[2021-03-16 06:00] LABS: ALBUMIN 1.6 g/dL (3.5-5.0); BILIRUBIN,TOTAL 3.2 mg/dL (0.2-1.0); CREATININE 1.3 mg/dL (0.5-1.5); POTASSIUM 3.4 mmol/L (3.5-5.1); TOTAL PROTEIN, SERUM 5.7 g/dL (6.0-8.3)
[2021-03-16] MEDS ORDERED: PROPOFOL 10 MG/ML 20ML VIAL IV ONE (07:43)
[2021-03-16] MEDS ORDERED: FENTANYL CITRATE PF 50 MCG/1 ML 2ML VIAL ONE ×2 (07:43→09:54)
[2021-03-16] MEDS ORDERED: 0.9%NACL 1000ML 1,000 ML IV ONE (07:43)
[2021-03-16] MEDS ORDERED: LIDOCAINE PF 100MG/5ML (2%) SYRINGE 5ML ONE (07:43)
[2021-03-16] MEDS: LACTATED RINGERS 1000ML 1,000 ML IV SCH (07:45)
[2021-03-16] MEDS ORDERED: TRANEXAMIC ACID 1000MG/10ML ONE ×2 (08:32→13:14)
[2021-03-16] MEDS ORDERED: TRANEXAMIC ACID 1000MG/10ML IV ONE (08:45)
[2021-03-16] MEDS ORDERED: CEFAZOLIN SODIUM 1 GM VIAL ONE ×2 (08:52→11:31)
[2021-03-16] MEDS ORDERED: 0.9%NACL 10ML VIAL ONE (08:55)
[2021-03-16] MEDS ORDERED: PHENYLEPHRINE HCL 10 MG/ML 1ML VIAL IV ONE (08:55)
[2021-03-16] MEDS: LACTULOSE 20 GM/30 ML UDCUP PO SCH ×2 (09:00→21:09)
[2021-03-16] MEDS: VANCOMYCIN 1.25GM/NS 250ML IVPB SCH ×2 (09:00)
[2021-03-16] MEDS: RIFAXIMIN 550 MG TABLET PO SCH ×2 (09:00→21:09)
[2021-03-16] MEDS ORDERED: GLYCOPYRROLATE 1 MG/5 ML SYRINGE ONE (09:12)
[2021-03-16] MEDS ORDERED: MEPERIDINE-PF 25 MG/ML SYG ONE (09:48)
[2021-03-16] MEDS ORDERED: VANCOMYCIN 1G VIAL ONE (10:08)
[2021-03-16] MEDS ORDERED: MORPHINE PF 100MG/10ML AMP IV ONE (11:15)
[2021-03-16] MEDS ORDERED: DIPHENHYDRAMINE HCL 25 MG CAPSULE PO PRN (13:00)
[2021-03-16] MEDS ORDERED: TEMAZEPAM 15 MG CAPSULE PO PRN (13:00)
[2021-03-16] MEDS ORDERED: FERROUS FUMARATE 324 MG TABLET PO PRN (13:00)
[2021-03-16] MEDS: 0.9%NACL 1000ML 1,000 ML IV SCH (13:00)
[2021-03-16] MEDS ORDERED: OXYCODONE HCL 5 MG TAB PO PRN (13:00)
[2021-03-16] MEDS ORDERED: TRAMADOL HCL 50 MG TABLET PO PRN (13:00)
[2021-03-16] MEDS ORDERED: CALCIUM CARB 500MG PO PRN (13:00)
[2021-03-16] MEDS ORDERED: POTASSIUM CHLORIDE 10% ELIXIR 20 MEQ/15 ML UDCUP PO PRN ×2 (13:00→21:00)
[2021-03-16] MEDS ORDERED: LIDOCAINE HCL-MPF 1% 2ML VIAL IV PRN ×2 (13:00→21:00)
[2021-03-16] MEDS ORDERED: DiphenhydrAMINE HCL 50 MG/ML VIAL IVP PRN (13:00)
[2021-03-16] MEDS ORDERED: POTASSIUM CHLORIDE 20MEQ/100ML 100 ML IV PRN ×2 (13:00→21:00)
[2021-03-16 13:14] LABS: APPEARANCE BODY FLUID TURBID (CLEAR); SPECIMENTYPE,BODY FLUID ASPIRATE
[2021-03-16 13:16] LABS: BODY FLUID WBC 19440 /cu. mm.; COLOR,BODY FLUID DARK YELLOW (LT YELLOW); TOTAL VOLUME,BODY FLUID 50 mL
[2021-03-16 13:17] LABS: BODY FLUID RBC 2700 /cu. mm.
[2021-03-16 14:25] LABS: BF LYMPHOCYTE 3 %; BF MONOCYTE 5 %
[2021-03-16] MEDS: MEROPENEM 1 GM VIAL IVP SCH ×2 (17:56→21:46)
[2021-03-16] MEDS ORDERED: METOPROLOL TARTRATE 1 MG/ML 5ML VIAL IV PRN (20:30)
[2021-03-16] MEDS ORDERED: KCL 20 MEQ ERTAB PO PRN (21:00)
[2021-03-16 21:07] LABS: HEMATOCRIT 30.5 % (42-54)
[2021-03-16] MEDS: FAMOTIDINE 20MG VIAL IV SCH (21:09)
[2021-03-17] VITALS (7 sets, daily range): BP systolic 135–168; BP diastolic 59–74
[2021-03-17] MEDS: 0.9%NACL 1000ML 1,000 ML IV SCH (02:55)
[2021-03-17] MEDS: OXYCODONE HCL 5 MG TAB PO PRN (02:58)
[2021-03-17 04:46] LABS: BASOPHILS % (AUTO) 0.6 % (0.0-5.0); EOSINOPHILS % (AUTO) 1.4 % (0.0-8.0); HEMATOCRIT 29.6 % (42-54); LYMPHOCYTES % (AUTO) 15.6 % (21.0-51.0); MEAN CORPUSCULAR HEMOGLOBIN 34.7 pg (27.0-33.0); MEAN CORPUSCULAR HGB CONC 33.4 g/dL (32.0-36.0); MEAN CORPUSCULAR VOLUME 103.9 fL (79-99); MONOCYTES % (AUTO) 15.2 % (3.0-13.0); NEUTROPHILS % (AUTO) 66.6 % (40.0-77.0); PLATELET COUNT (AUTO) 119 K/uL (130-400); RED BLOOD CELL COUNT(AUTO) 2.85 MIL/uL (4.50-6.20); RED CELL DISTRIBUTION WIDTH 19.9 % (11.0-15.5); WHITE BLOOD COUNT (AUTO) 10.9 K/uL (4.8-10.8)
[2021-03-17 05:00] LABS: INR 1.59 (0.85-1.15); PROTHROMBIN TIME 16.6 SEC (9.6-11.6)
[2021-03-17 05:01] LABS: PARTIAL THROMBOPLASTIN TIME 33.9 SEC (26.3-35.5)
[2021-03-17 05:05] LABS: ALBUMIN 1.7 g/dL (3.5-5.0); BILIRUBIN,TOTAL 5.6 mg/dL (0.2-1.0); CREATININE 1.8 mg/dL (0.5-1.5); POTASSIUM 3.9 mmol/L (3.5-5.1); TOTAL PROTEIN, SERUM 5.5 g/dL (6.0-8.3)
[2021-03-17] MEDS: MEROPENEM 1 GM VIAL IVP SCH ×3 (06:01→21:55)
[2021-03-17] MEDS: ACETAMINOPHEN 325 MG TAB PO PRN (08:40)
[2021-03-17] MEDS: TAMSULOSIN HCL 0.4 MG CAP.ER.24H PO SCH ×2 (09:32→20:12)
[2021-03-17] MEDS: VANCOMYCIN 1.25GM/NS 250ML IVPB SCH ×2 (09:32)
[2021-03-17] MEDS: LACTULOSE 20 GM/30 ML UDCUP PO SCH ×3 (09:32→20:14)
[2021-03-17] MEDS: POLYETHYLENE GLYCOL 3350 17 GM POWD.PACK PO SCH (09:33)
[2021-03-17] MEDS: RIFAXIMIN 550 MG TABLET PO SCH ×2 (09:33→20:12)
[2021-03-17] MEDS: ENOXAPARIN SODIUM 40 MG/0.4 ML SYRINGE SQ SCH (09:34)
[2021-03-17] MEDS: LACTATED RINGERS 1000ML 1,000 ML IV SCH (10:30)
[2021-03-17] MEDS: PSYLLIUM SEED 1 EACH PACKET PO SCH (14:14)
[2021-03-17 19:03] LABS: CHLORIDE,URINE RANDOM 50 mmol/L (110-250); POTASSIUM,URINE RANDOM 36 mmol/L (25-125); SODIUM,URINE RANDOM < 14 mmol/l (40-220)
[2021-03-17] MEDS: ATORVASTATIN 40 MG TABLET PO SCH (20:12)
[2021-03-17] MEDS: FAMOTIDINE 20MG VIAL IV SCH (20:12)
[2021-03-17] MEDS: MAGNESIUM OXIDE 400 MG TABLET PO SCH (20:12)
[2021-03-18] MEDS: OXYCODONE HCL 5 MG TAB PO PRN (01:41)
[2021-03-18 03:32] VITALS: BP 160/69
[2021-03-18 05:27] LABS: BASOPHILS % (AUTO) 0.7 % (0.0-5.0); EOSINOPHILS % (AUTO) 4.1 % (0.0-8.0); HEMATOCRIT 24.6 % (42-54); LYMPHOCYTES % (AUTO) 21.8 % (21.0-51.0); MEAN CORPUSCULAR HEMOGLOBIN 33.8 pg (27.0-33.0); MEAN CORPUSCULAR HGB CONC 32.9 g/dL (32.0-36.0); MEAN CORPUSCULAR VOLUME 102.5 fL (79-99); MONOCYTES % (AUTO) 17.7 % (3.0-13.0); NEUTROPHILS % (AUTO) 55.2 % (40.0-77.0); PLATELET COUNT (AUTO) 87 K/uL (130-400); RED CELL DISTRIBUTION WIDTH 18.5 % (11.0-15.5); WHITE BLOOD COUNT (AUTO) 5.9 K/uL (4.8-10.8)
[2021-03-18] MEDS: LACTATED RINGERS 1000ML 1,000 ML IV SCH (05:27)
[2021-03-18] MEDS: MEROPENEM 1 GM VIAL IVP SCH ×3 (05:27→21:47)
[2021-03-18 05:42] LABS: INR 1.69 (0.85-1.15); PROTHROMBIN TIME 17.6 SEC (9.6-11.6)
[2021-03-18 05:49] LABS: ALBUMIN 1.5 g/dL (3.5-5.0); BILIRUBIN,TOTAL 3.3 mg/dL (0.2-1.0); CREATININE 2.1 mg/dL (0.5-1.5); POTASSIUM 3.8 mmol/L (3.5-5.1); TOTAL PROTEIN, SERUM 5.1 g/dL (6.0-8.3)
[2021-03-18] MEDS: LEVOTHYROXINE 50 MCG TABLET PO SCH (05:50)
[2021-03-18 07:48] VITALS: BP 149/65
[2021-03-18] MEDS: MAGNESIUM OXIDE 400 MG TABLET PO SCH ×2 (08:03→21:23)
[2021-03-18] MEDS: VANCOMYCIN 1.25GM/NS 250ML IVPB SCH ×2 (08:03)
[2021-03-18] MEDS: KCL 20 MEQ ERTAB PO SCH (08:03)
[2021-03-18] MEDS: LACTULOSE 20 GM/30 ML UDCUP PO SCH ×4 (08:03→21:00)
[2021-03-18] MEDS: TAMSULOSIN HCL 0.4 MG CAP.ER.24H PO SCH ×2 (08:04→21:23)
[2021-03-18] MEDS: RIFAXIMIN 550 MG TABLET PO SCH ×2 (08:04→21:23)
[2021-03-18] MEDS: ASPIRIN 81 MG EC TAB PO SCH (08:04)
[2021-03-18] MEDS: POLYETHYLENE GLYCOL 3350 17 GM POWD.PACK PO SCH (08:04)
[2021-03-18] MEDS: ENOXAPARIN SODIUM 40 MG/0.4 ML SYRINGE SQ SCH (08:05)
[2021-03-18] MEDS: BUMETANIDE 1 MG TAB PO SCH (09:20)
[2021-03-18] MEDS: ACETAMINOPHEN 325 MG TAB PO PRN (11:04)
[2021-03-18] MEDS: PSYLLIUM SEED 1 EACH PACKET PO SCH (11:41)
[2021-03-18 11:44] VITALS: BP 165/70
[2021-03-18] MEDS ORDERED: BISACODYL 5 MG TABLET.DR PO PRN (13:00)
[2021-03-18 16:11] VITALS: BP 132/77
[2021-03-18 19:25] VITALS: BP 152/69
[2021-03-18] MEDS: FAMOTIDINE 20MG VIAL IV SCH (21:23)
[2021-03-18] MEDS: ATORVASTATIN 40 MG TABLET PO SCH (21:24)
[2021-03-19 01:09] VITALS: BP 116/83
[2021-03-19 04:12] VITALS: BP 139/59
[2021-03-19 04:31] LABS: BASOPHILS % (AUTO) 0.7 % (0.0-5.0); EOSINOPHILS % (AUTO) 3.6 % (0.0-8.0); HEMATOCRIT 23.4 % (42-54); LYMPHOCYTES % (AUTO) 26.7 % (21.0-51.0); MEAN CORPUSCULAR HEMOGLOBIN 34.5 pg (27.0-33.0); MEAN CORPUSCULAR HGB CONC 34.2 g/dL (32.0-36.0); MEAN CORPUSCULAR VOLUME 100.9 fL (79-99); MONOCYTES % (AUTO) 17.5 % (3.0-13.0); NEUTROPHILS % (AUTO) 51.3 % (40.0-77.0); PLATELET COUNT (AUTO) 83 K/uL (130-400); RED BLOOD CELL COUNT(AUTO) 2.32 MIL/uL (4.50-6.20); RED CELL DISTRIBUTION WIDTH 17.9 % (11.0-15.5); WHITE BLOOD COUNT (AUTO) 4.2 K/uL (4.8-10.8)
[2021-03-19 04:56] LABS: ALBUMIN 1.4 g/dL (3.5-5.0); BILIRUBIN,TOTAL 3.1 mg/dL (0.2-1.0); CREATININE 2.1 mg/dL (0.5-1.5); POTASSIUM 3.6 mmol/L (3.5-5.1); TOTAL PROTEIN, SERUM 4.8 g/dL (6.0-8.3)
[2021-03-19 05:25] LABS: INR 1.73 (0.85-1.15); PROTHROMBIN TIME 17.9 SEC (9.6-11.6)
[2021-03-19] MEDS: MEROPENEM 1 GM VIAL IVP SCH ×3 (06:06→21:28)
[2021-03-19] MEDS: LEVOTHYROXINE 50 MCG TABLET PO SCH (06:06)
[2021-03-19 08:06] VITALS: BP 137/63
[2021-03-19] MEDS: LACTULOSE 20 GM/30 ML UDCUP PO SCH ×4 (09:00→21:09)
[2021-03-19] MEDS: TAMSULOSIN HCL 0.4 MG CAP.ER.24H PO SCH ×2 (09:33→21:08)
[2021-03-19] MEDS: MAGNESIUM OXIDE 400 MG TABLET PO SCH ×2 (09:33→21:08)
[2021-03-19] MEDS: ASPIRIN 81 MG EC TAB PO SCH (09:33)
[2021-03-19] MEDS: POLYETHYLENE GLYCOL 3350 17 GM POWD.PACK PO SCH (09:33)
[2021-03-19] MEDS: KCL 20 MEQ ERTAB PO SCH (09:34)
[2021-03-19] MEDS: ENOXAPARIN SODIUM 40 MG/0.4 ML SYRINGE SQ SCH (09:34)
[2021-03-19] MEDS: BUMETANIDE 1 MG TAB PO SCH (09:34)
[2021-03-19] MEDS: RIFAXIMIN 550 MG TABLET PO SCH ×2 (09:35→21:08)
[2021-03-19] MEDS: VANCOMYCIN 1.25GM/NS 250ML IVPB SCH ×2 (09:36)
[2021-03-19 11:36] VITALS: BP 137/60
[2021-03-19] MEDS: PSYLLIUM SEED 1 EACH PACKET PO SCH (12:05)
[2021-03-19] MEDS ORDERED: BISACODYL 10 MG SUPP.RECT RC PRN (13:00)
[2021-03-19 16:19] VITALS: BP 136/68
[2021-03-19 20:00] VITALS: BP 137/70
[2021-03-19] MEDS: ATORVASTATIN 40 MG TABLET PO SCH (21:08)
[2021-03-19] MEDS: FAMOTIDINE 20MG VIAL IV SCH (21:08)
[2021-03-19] MEDS: ACETAMINOPHEN 325 MG TAB PO PRN (22:25)
[2021-03-20] VITALS: BP 149/70
[2021-03-20 04:00] VITALS: BP 137/49
[2021-03-20] MEDS: LEVOTHYROXINE 50 MCG TABLET PO SCH (06:56)
[2021-03-20] MEDS: MEROPENEM 1 GM VIAL IVP SCH ×3 (06:56→21:19)
[2021-03-20 07:50] LABS: INR 1.54 (0.85-1.15); PROTHROMBIN TIME 16.1 SEC (9.6-11.6)
[2021-03-20 08:00] VITALS: BP 149/63
[2021-03-20 08:14] LABS: HEMATOCRIT 26.1 % (42-54); MEAN CORPUSCULAR HEMOGLOBIN 33.5 pg (27.0-33.0); MEAN CORPUSCULAR HGB CONC 33.7 g/dL (32.0-36.0); MEAN CORPUSCULAR VOLUME 99.2 fL (79-99); RED BLOOD CELL COUNT(AUTO) 2.63 MIL/uL (4.50-6.20); RED CELL DISTRIBUTION WIDTH 18.6 % (11.0-15.5); WHITE BLOOD COUNT (AUTO) 4.6 K/uL (4.8-10.8)
[2021-03-20 08:19] LABS: CREATININE 1.9 mg/dL (0.5-1.5); POTASSIUM 3.3 mmol/L (3.5-5.1)
[2021-03-20] MEDS: ASPIRIN 81 MG EC TAB PO SCH (08:27)
[2021-03-20] MEDS: MAGNESIUM OXIDE 400 MG TABLET PO SCH ×2 (08:27→20:13)
[2021-03-20] MEDS: LACTULOSE 20 GM/30 ML UDCUP PO SCH ×4 (08:27→20:28)
[2021-03-20] MEDS: TAMSULOSIN HCL 0.4 MG CAP.ER.24H PO SCH ×2 (08:27→20:13)
[2021-03-20] MEDS: BUMETANIDE 1 MG TAB PO SCH (08:27)
[2021-03-20] MEDS: KCL 20 MEQ ERTAB PO SCH (08:28)
[2021-03-20] MEDS: RIFAXIMIN 550 MG TABLET PO SCH ×2 (08:28→20:13)
[2021-03-20] MEDS: POLYETHYLENE GLYCOL 3350 17 GM POWD.PACK PO SCH (09:00)
[2021-03-20] MEDS: VANCOMYCIN 1.25GM/NS 250ML IVPB SCH ×2 (09:00)
[2021-03-20 12:00] VITALS: BP 137/62
[2021-03-20] MEDS: PSYLLIUM SEED 1 EACH PACKET PO SCH (12:22)
[2021-03-20 16:14] VITALS: BP 155/59
[2021-03-20] MEDS: KCL 20 MEQ ERTAB PO PRN ×2 (16:29→18:56)
[2021-03-20 20:00] VITALS: BP 147/67
[2021-03-20] MEDS: ATORVASTATIN 40 MG TABLET PO SCH (20:13)
[2021-03-20] MEDS: FAMOTIDINE 20MG VIAL IV SCH (20:14)
[2021-03-21] VITALS: BP 142/50
[2021-03-21 04:23] VITALS: BP 139/59
[2021-03-21] MEDS: MEROPENEM 1 GM VIAL IVP SCH ×3 (05:26→22:17)
[2021-03-21] MEDS: LEVOTHYROXINE 50 MCG TABLET PO SCH (06:24)
[2021-03-21 08:00] VITALS: BP 128/47
[2021-03-21] MEDS: BUMETANIDE 1 MG TAB PO SCH (08:25)
[2021-03-21] MEDS: LACTULOSE 20 GM/30 ML UDCUP PO SCH ×4 (08:25→20:58)
[2021-03-21] MEDS: ASPIRIN 81 MG EC TAB PO SCH (08:25)
[2021-03-21] MEDS: TAMSULOSIN HCL 0.4 MG CAP.ER.24H PO SCH ×2 (08:26→20:08)
[2021-03-21] MEDS: MAGNESIUM OXIDE 400 MG TABLET PO SCH ×2 (08:27→20:08)
[2021-03-21] MEDS: POLYETHYLENE GLYCOL 3350 17 GM POWD.PACK PO SCH (08:27)
[2021-03-21] MEDS: KCL 20 MEQ ERTAB PO SCH (08:27)
[2021-03-21] MEDS: RIFAXIMIN 550 MG TABLET PO SCH ×2 (08:28→20:08)
[2021-03-21] MEDS: VANCOMYCIN 1G/250ML KIT 250 ML IV SCH (09:18)
[2021-03-21] MEDS: PSYLLIUM SEED 1 EACH PACKET PO SCH (11:00)
[2021-03-21 11:51] VITALS: BP 171/63
[2021-03-21 16:00] VITALS: BP 116/63
[2021-03-21] MEDS ORDERED: VANCOMYCIN 1G VIAL ONE (16:36)
[2021-03-21] MEDS ORDERED: CEFAZOLIN SODIUM 1 GM VIAL ONE (16:36)
[2021-03-21 19:37] VITALS: BP 142/79
[2021-03-21 19:49] LABS: HEMATOCRIT 28.7 % (42-54); MEAN CORPUSCULAR HEMOGLOBIN 33.9 pg (27.0-33.0); MEAN CORPUSCULAR HGB CONC 33.8 g/dL (32.0-36.0); MEAN CORPUSCULAR VOLUME 100.3 fL (79-99); RED BLOOD CELL COUNT(AUTO) 2.86 MIL/uL (4.50-6.20); RED CELL DISTRIBUTION WIDTH 19.1 % (11.0-15.5); WHITE BLOOD COUNT (AUTO) 6.3 K/uL (4.8-10.8)
[2021-03-21 19:57] LABS: ALBUMIN 1.5 g/dL (3.5-5.0); CREATININE 2.1 mg/dL (0.5-1.5)
[2021-03-21] MEDS ORDERED: 0.9%NACL 1000ML 1,000 ML IV SCH (20:00)
[2021-03-21] MEDS: ATORVASTATIN 40 MG TABLET PO SCH (20:08)
[2021-03-21] MEDS: FAMOTIDINE 20MG VIAL IV SCH (20:08)
[2021-03-22] VITALS (26 sets, daily range): BP systolic 100–146; BP diastolic 37–79
[2021-03-22] MEDS: LEVOTHYROXINE 50 MCG TABLET PO SCH (05:21)
[2021-03-22] MEDS: MEROPENEM 1 GM VIAL IVP SCH ×3 (05:22→22:43)
[2021-03-22 06:02] LABS: HEMATOCRIT 28.7 % (42-54); MEAN CORPUSCULAR HEMOGLOBIN 33.4 pg (27.0-33.0); MEAN CORPUSCULAR HGB CONC 33.4 g/dL (32.0-36.0); RED BLOOD CELL COUNT(AUTO) 2.87 MIL/uL (4.50-6.20); RED CELL DISTRIBUTION WIDTH 18.6 % (11.0-15.5); WHITE BLOOD COUNT (AUTO) 6.7 K/uL (4.8-10.8)
[2021-03-22 06:19] LABS: CREATININE 1.8 mg/dL (0.5-1.5); POTASSIUM 3.7 mmol/L (3.5-5.1)
[2021-03-22] MEDS ORDERED: CEFAZOLIN SODIUM 1 GM VIAL ONE (06:23)
[2021-03-22] MEDS ORDERED: VANCOMYCIN 1G VIAL ONE ×2 (06:24→11:50)
[2021-03-22 06:36] LABS: INR 1.43 (0.85-1.15); PROTHROMBIN TIME 15.1 SEC (9.6-11.6)
[2021-03-22] MEDS ORDERED: DEXAMETHASONE SOD PHOSPHATE 10MG/ML 1ML VIAL ONE (08:09)
[2021-03-22] MEDS ORDERED: SUCCINYLCHOLINE CHLORIDE 20 MG/ML 10 ML VIAL ONE (08:09)
[2021-03-22] MEDS ORDERED: LIDOCAINE PF 100MG/5ML (2%) SYRINGE 5ML ONE (08:09)
[2021-03-22] MEDS ORDERED: GLYCOPYRROLATE 1 MG/5 ML SYRINGE ONE (08:10)
[2021-03-22] MEDS ORDERED: PROPOFOL 10 MG/ML 20ML VIAL IV ONE (08:10)
[2021-03-22] MEDS ORDERED: FENTANYL CITRATE PF 50 MCG/1 ML 2ML VIAL ONE ×2 (08:10→10:05)
[2021-03-22] MEDS ORDERED: NEOSTIGMINE 5MG/5ML SYR IV ONE (08:10)
[2021-03-22] MEDS ORDERED: MIDAZOLAM HCL 1 MG/ML 2ML VIAL ONE (08:10)
[2021-03-22] MEDS ORDERED: ROCURONIUM 10MG/1ML SYR 10 MG/ML ML ONE (08:11)
[2021-03-22] MEDS ORDERED: ESMOLOL HCL 10 MG/ML 10 ML VIAL ONE (08:25)
[2021-03-22] MEDS: LACTULOSE 20 GM/30 ML UDCUP PO SCH ×2 (09:00→20:38)
[2021-03-22] MEDS: VANCOMYCIN 1G/250ML KIT 250 ML IV SCH (09:00)
[2021-03-22] MEDS: ASPIRIN 81 MG EC TAB PO SCH (09:00)
[2021-03-22] MEDS: MAGNESIUM OXIDE 400 MG TABLET PO SCH ×2 (09:00→20:32)
[2021-03-22] MEDS: RIFAXIMIN 550 MG TABLET PO SCH ×2 (09:00→20:32)
[2021-03-22] MEDS ORDERED: PHENYLEPHRINE HCL 10 MG/ML 1ML VIAL IV ONE (11:44)
[2021-03-22] MEDS: PSYLLIUM SEED 1 EACH PACKET PO SCH (12:00)
[2021-03-22] MEDS ORDERED: MEPERIDINE-PF 25 MG/ML SYG ONE ×2 (13:01→13:58)
[2021-03-22] MEDS ORDERED: ONDANSETRON 4MG INJ ONE (13:01)
[2021-03-22] MEDS ORDERED: TRANEXAMIC ACID 1000MG/10ML ONE (13:40)
[2021-03-22] MEDS ORDERED: IPRATROPIUM/ALBUTEROL SULFATE 3 ML SOLUTION IH ONE (14:03)
[2021-03-22] MEDS ORDERED: DIPHENHYDRAMINE HCL 25 MG CAPSULE PO PRN (14:30)
[2021-03-22] MEDS ORDERED: TRAMADOL HCL 50 MG TABLET PO PRN (14:30)
[2021-03-22] MEDS ORDERED: DiphenhydrAMINE HCL 50 MG/ML VIAL IVP PRN (14:30)
[2021-03-22] MEDS ORDERED: CALCIUM CARB 500MG PO PRN (14:30)
[2021-03-22] MEDS ORDERED: LIDOCAINE HCL-MPF 1% 2ML VIAL IV PRN (14:30)
[2021-03-22] MEDS ORDERED: OXYCODONE HCL 5 MG TAB PO PRN ×2 (14:30)
[2021-03-22] MEDS ORDERED: KCL 20 MEQ ERTAB PO PRN (14:30)
[2021-03-22] MEDS ORDERED: POTASSIUM CHLORIDE 10% ELIXIR 20 MEQ/15 ML UDCUP PO PRN (14:30)
[2021-03-22] MEDS ORDERED: POTASSIUM CHLORIDE 20MEQ/100ML 100 ML IV PRN (14:30)
[2021-03-22 14:51] LABS: HEMATOCRIT 23.4 % (42-54)
[2021-03-22] MEDS: 0.9%NACL 1000ML 1,000 ML IV SCH (15:48)
[2021-03-22] MEDS: TAMSULOSIN HCL 0.4 MG CAP.ER.24H PO SCH ×2 (17:55→20:32)
[2021-03-22] MEDS: POLYETHYLENE GLYCOL 3350 17 GM POWD.PACK PO SCH (17:55)
[2021-03-22] MEDS: KCL 20 MEQ ERTAB PO SCH (17:55)
[2021-03-22] MEDS: BUMETANIDE 1 MG TAB PO SCH (17:55)
[2021-03-22] MEDS: ONDANSETRON 4MG INJ IV PRN ×2 (19:14→22:44)
[2021-03-22] MEDS: ATORVASTATIN 40 MG TABLET PO SCH (20:32)
[2021-03-22] MEDS: FAMOTIDINE 20MG VIAL IV SCH (20:32)
[2021-03-22] MEDS ORDERED: FUROSEMIDE 40MG VIAL IV ONE (23:00)
[2021-03-23] VITALS (42 sets, daily range): BP systolic 41–155; BP diastolic 15–117
[2021-03-23] MEDS: 0.9%NACL 1000ML 1,000 ML IV SCH (00:30)
[2021-03-23 01:43] LABS: HEMATOCRIT 29.8 % (42-54); MEAN CORPUSCULAR HEMOGLOBIN 32.5 pg (27.0-33.0); MEAN CORPUSCULAR HGB CONC 29.5 g/dL (32.0-36.0); NUCLEATED RED BLOOD CELLS 0.1 % (0.0-0.19); PLATELET COUNT (AUTO) 23 K/uL (130-400); RED BLOOD CELL COUNT(AUTO) 2.71 MIL/uL (4.50-6.20); RED CELL DISTRIBUTION WIDTH 22.7 % (11.0-15.5)
[2021-03-23 01:47] LABS: POTASSIUM 5.4 mmol/L (3.5-5.1)
[2021-03-23 01:55] LABS: CREATININE 2.8 mg/dL (0.5-1.5)
[2021-03-23] MEDS ORDERED: NOREPINEPHRIN 4MG/NS 250ML 250 ML IV ONE ×2 (02:04→06:09)
[2021-03-23 04:13] LABS: INR 2.35 (0.85-1.15); PROTHROMBIN TIME 23.7 SEC (9.6-11.6)
[2021-03-23 04:34] LABS: ABG BASE EXCESS -28.4 mmol/L (-2.0-3.0); ABG HCO3 4.5 mmol/L (21.0-28.0); ABG OXYGEN SATURATION 96.8 % (95.0-99.0); ABG PCO2 29 mmHg (35-48)
[2021-03-23] MEDS ORDERED: SODIUM BICARB 50MEQ 50ML VIAL 200 ML ONE (04:44)
[2021-03-23] MEDS ORDERED: 1/2 NS 1000ML 1,000 ML IV ONE (04:44)
[2021-03-23] MEDS: LEVOTHYROXINE 50 MCG TABLET PO SCH (05:43)
[2021-03-23] MEDS ORDERED: SODIUM BICARB 8.4% IVP SCH (06:00)
[2021-03-23] MEDS ORDERED: SYRING IVP SCH (06:00)
[2021-03-23] MEDS ORDERED: VASOPRESSIN 40 UNITS in 0.9%NACL 50ML 40 ML IV SCH (06:00)
[2021-03-23] MEDS ORDERED: SODIUM BICARB 50MEQ 50ML VIAL IV ONE (06:00)
[2021-03-23] MEDS ORDERED: 1/2 NS IVP SCH (06:00)
[2021-03-23] MEDS: MEROPENEM 1 GM VIAL IVP SCH (06:29)
[2021-03-23] MEDS ORDERED: ALTEPLASE 2MG VIAL 2 MG/VIAL VIAL IVCATH SCH (06:30)
[2021-03-23] MEDS ORDERED: 0.9%NACL 1000ML 1,000 ML IV SCH (07:00)
[2021-03-23] MEDS ORDERED: SODIUM BICARB 50MEQ 50ML VIAL 100 ML ONE (07:05)
[2021-03-23] MEDS: NOREPINEPHRINE BITARTRATE 32 MG in 0.9% NACL 250ML 250 ML IV PRN ×2 (07:30→12:10)
[2021-03-23 08:00] LABS: ABG BASE EXCESS -26.6 mmol/L (-2.0-3.0); ABG HCO3 7.6 mmol/L (21.0-28.0); ABG OXYGEN SATURATION 91.9 % (95.0-99.0); ABG PCO2 55 mmHg (35-48)
[2021-03-23] MEDS ORDERED: PHENYLEPHRINE HCL 100 MG in 0.9% NACL 250ML 240 ML IV PRN (08:30)
[2021-03-23] MEDS: POLYETHYLENE GLYCOL 3350 17 GM POWD.PACK PO SCH (09:00)
[2021-03-23] MEDS ORDERED: HYDROCORTISONE SOD SUCCINATE 100 MG/2 ML VIAL IV SCH (09:00)
[2021-03-23] MEDS: RIFAXIMIN 550 MG TABLET PO SCH (09:00)
[2021-03-23] MEDS: ASPIRIN 81 MG EC TAB PO SCH (09:00)
[2021-03-23] MEDS: TAMSULOSIN HCL 0.4 MG CAP.ER.24H PO SCH (09:00)
[2021-03-23] MEDS: BUMETANIDE 1 MG TAB PO SCH (09:00)
[2021-03-23] MEDS ORDERED: SODIUM BICARB 50MEQ 50ML VIAL IV SCH (09:00)
[2021-03-23] MEDS: KCL 20 MEQ ERTAB PO SCH (09:00)
[2021-03-23] MEDS ORDERED: SODIUM BICARB 8.4% 50ML SYRING 150 MEQ in 0.9%NACL 1000ML 1,000 ML IVP SCH (09:00)
[2021-03-23] MEDS: MAGNESIUM OXIDE 400 MG TABLET PO SCH (09:00)
[2021-03-23] MEDS: LACTULOSE 20 GM/30 ML UDCUP PO SCH (09:00)
[2021-03-23] MEDS: VANCOMYCIN 1G/250ML KIT 250 ML IV SCH (10:42)
[2021-03-23] MEDS: PSYLLIUM SEED 1 EACH PACKET PO SCH (12:00)
[2021-03-23] MEDS ORDERED: FLUCONAZOLE 200 MG/NS 100 ML 100 ML IV SCH (15:00)
== END 2021-03-23 15:11 | DRG 466 ==
LOC: EDH 16:01 → OBSVTOIN 18:58 → EDHIP 18:58 → INTOOBSV 18:58 → 3DH 20:18 → EDHIP 20:37 → 3DH 22:14 → 2CH 03-23 02:21
PROVIDERS: ADMIT Hospitalist; ATTEND Hospitalist
PROC: 30233N1 Transfusion of Nonautologous Red Blood Cells into Peripheral Vein, Percutaneous Approach (ICD-10-PCS; 2021-03-16)
PROC: 0SBC0ZZ Excision of Right Knee Joint, Open Approach (ICD-10-PCS; principal; 2021-03-16 09:37)
PROC: 0SPC0JZ Removal of Synthetic Substitute from Right Knee Joint, Open Approach (ICD-10-PCS; 2021-03-16 09:37)
PROC: 0SRC0EZ Replacement of Right Knee Joint with Articulating Spacer, Open Approach (ICD-10-PCS; 2021-03-16 09:37)
PROC: 30233K1 Transfusion of Nonautologous Frozen Plasma into Peripheral Vein, Percutaneous Approach (ICD-10-PCS; 2021-03-16 09:37)
PROC: 0SRC0EZ Replacement of Right Knee Joint with Articulating Spacer, Open Approach (ICD-10-PCS; 2021-03-23)
PROC: 5A09357 Assistance with Respiratory Ventilation, Less than 24 Consecutive Hours, Continuous Positive Airway Pressure (ICD-10-PCS; 2021-03-23)
DX: T84.53XA Infection and inflammatory reaction due to internal right knee prosthesis, initial encounter (principal); A41.9 Sepsis, unspecified organism; E43 Unspecified severe protein-calorie malnutrition; J96.01 Acute respiratory failure with hypoxia; J96.02 Acute respiratory failure with hypercapnia; R65.21 Severe sepsis with septic shock; L03.115 Cellulitis of right lower limb; L02.415 Cutaneous abscess of right lower limb; D62 Acute posthemorrhagic anemia; N17.9 Acute kidney failure, unspecified; Z68.41 Body mass index [BMI] 40.0-44.9, adult; I12.9 Hypertensive chronic kidney disease with stage 1 through stage 4 chronic kidney disease, or unspecified chronic kidney disease; Z66 Do not resuscitate; N18.9 Chronic kidney disease, unspecified; E78.5 Hyperlipidemia, unspecified; E11.22 Type 2 diabetes mellitus with diabetic chronic kidney disease; E87.6 Hypokalemia; D69.59 Other secondary thrombocytopenia; Z20.822 Contact with and (suspected) exposure to COVID-19; M19.90 Unspecified osteoarthritis, unspecified site; E03.9 Hypothyroidism, unspecified; E66.01 Morbid (severe) obesity due to excess calories; K21.9 Gastro-esophageal reflux disease without esophagitis; N40.1 Benign prostatic hyperplasia with lower urinary tract symptoms; K74.60 Unspecified cirrhosis of liver; R33.8 Other retention of urine; Y83.1 Surgical operation with implant of artificial internal device as the cause of abnormal reaction of the patient, or of later complication, without mention of misadventure at the time of the procedure; R53.81 Other malaise; Y92.89 Other specified places as the place of occurrence of the external cause; Z85.51 Personal history of malignant neoplasm of bladder; Z85.850 Personal history of malignant neoplasm of thyroid; Z95.5 Presence of coronary angioplasty implant and graft; Z91.81 History of falling; Z95.1 Presence of aortocoronary bypass graft; Z82.3 Family history of stroke; Z83.3 Family history of diabetes mellitus; Z82.49 Family history of ischemic heart disease and other diseases of the circulatory system
CPT/HCPCS: 36415; 36430; 36600; 71045; 73562; 73564; 76770; 80048; 80051; 80053; 80202; 82040; 82140; 82435; 82803; 82947; 82948; 83605; 83880; 84132; 84145; 84295; 84484; 85014; 85018; 85025; 85027; 85378; 85610; 85651; 85730; 86140; 86850; 86900; 86901; 86923; 86927; 87040; 87070; 87071; 87076; 87205; 87635; 88300; 89051; 93005; 93970; 94660; 97039; C1713; C1894; C9803; G0378; J0330; J0360; J0690; J0692; J1100; J1650; J1720; J1940; J2001; J2175; J2185; J2250; J2274; J2370; J2405; J2704; J2710; J2997; J3010; J3370; J3490; J7030; J7050; J7120; P9016; P9017